=== PATIENT | female | born 2005 | race Caucasian/White ===

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

== ENCOUNTER 2025-01-01 01:25 | Emergency (ER) | payer BC, SELFPAY ==
[2025-01-01 01:39] VITALS: BP 132/85
--- NOTE | 2025-01-01 02:06 | ED.GENMED ---
History of Present Illness
<Yasmine Turk MD - Last Filed: 01/01/25 02:25>
General
Chief Complaint: Throat Problem
Source: patient and family
Time Seen by Provider: 01/01/25 01:56
History of Present Illness
History of Present Illness:
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 [facility] and had strep flu and COVID testing all of which were unremarkable. She came home today, and mom was concerned given her continued symptoms which prompted the visit here. She denies fever, abdominal pain, neck stiffness,
photophobia, cough. She has slight nasal congestion. She did have 1 episode of vomiting last night which she says is related to anxiety because she was crying at the time. Otherwise she denies nausea or vomiting. She denies back pain, or other
complaints.
Past History
<Yasmine Turk MD - Last Filed: 01/01/25 02:25>
Past History
ED Past Medical History: None
ED Past Surgical History: None
Social History
Tobacco: Non-smoker
Alcohol: Occasional
Drug: None
Personal: Single
Living: with family
Employment: Student
Phy Exam
<Yasmine Turk MD - Last Filed: 01/01/25 02:25>
Physical Exam
Physical Exam:
GENERAL: Alert , in no apparent distress, smiling, well-appearing, pleasant
EYE: pupils equal and reactive, no photophobia
NECK: Supple, mild posterior lymph adenopathy.
ENT: Mucous membranes slightly dry, no trismus, no drool, voice clear, no submental swelling, no posterior pharyngeal edema, uvula midline, mild pharyngeal erythema without exudate
CARDIAC: Regular rate and rhythm .
LUNGS: Clear breath sounds bilaterally, no acute respiratory distress, no wheezes/rales/rhonchi
ABDOMEN: Soft, without focal tenderness, no r/g, no cvat
NEUROLOGICAL: Alert and oriented, no focal neuro deficits
SKIN: Warm and dry, skin intact.
MUSCULOSKELETAL: No edema, well perfused.
PSYCH: Normal and appropriate interaction.
Sepsis
<David Velazquez DO - Last Filed: 01/02/25 22:45>
Sepsis Screening
Sepsis Assessment: Sepsis Ruled Out
Sepsis Screen
Sepsis Screen: Sepsis Ruled Out
Date: 01/02/25
Time: 22:45
Course
<Yasmine Turk MD - Last Filed: 01/01/25 02:25>
Orders/Labs/Results
Orders:
Orders
01/01/25 02:05
0.9% Sodium Chloride 1000 ml [Nss] 1,000 ml IV BOLUS
Dexamethasone Sod Phosphate [Decadron] 10 mg IV NOW STA
01/01/25 02:18
COVID-19 Antigen Urgent
Source: Nasal Swab
Monotest Urgent
Influenza A+B Rapid Molecular Urgent
NASIMA Source: Nasal Swab
Specimen Description:
Rapid Strep Group A Urgent
NASIMA Source: Throat/Pharynx
Specimen Description:
Date Specimen was Collected: 01/01/25
Time Specimen was Collected: 02:11
Abnormal Lab Results
01/01/25
02:18
Monoscreen Positive A
(Negative)
Vital Signs
Initial and Last Documented VS:
Initial Vital Signs
Temp Pulse Resp BP Pulse Ox
98.5 F 88 16 132/85 99
01/01/25 01:39 01/01/25 01:39 01/01/25 01:39 01/01/25 01:39 01/01/25 01:39
Last Documented Vital Signs
Temp Pulse Resp BP Pulse Ox
98.5 F 79 18 118/71 98
01/01/25 01:39 01/01/25 04:07 01/01/25 04:07 01/01/25 04:07 01/01/25 04:07
<David Velazquez DO - Last Filed: 01/02/25 22:45>
Orders/Labs/Results
Orders:
Orders
01/01/25 02:05
0.9% Sodium Chloride 1000 ml [Nss] 1,000 ml IV BOLUS
Dexamethasone Sod Phosphate [Decadron] 10 mg IV NOW STA
01/01/25 02:18
COVID-19 Antigen Urgent
Source: Nasal Swab
Monotest Urgent
Influenza A+B Rapid Molecular Urgent
NASIMA Source: Nasal Swab
Specimen Description:
Rapid Strep Group A Urgent
NASIMA Source: Throat/Pharynx
Specimen Description:
Date Specimen was Collected: 01/01/25
Time Specimen was Collected: 02:11
Abnormal Lab Results
01/01/25
02:18
Monoscreen Positive A
(Negative)
Vital Signs
Initial and Last Documented VS:
Initial Vital Signs
Temp Pulse Resp BP Pulse Ox
98.5 F 88 16 132/85 99
01/01/25 01:39 01/01/25 01:39 01/01/25 01:39 01/01/25 01:39 01/01/25 01:39
Last Documented Vital Signs
Temp Pulse Resp BP Pulse Ox
98.5 F 79 18 118/71 98
01/01/25 01:39 01/01/25 04:07 01/01/25 04:07 01/01/25 04:07 01/01/25 04:07
<Yasmine Turk MD - Last Filed: 01/01/25 02:25>
*Pulse Oximetry
SaO2: 99
Oxygen Mode of Delivery: Room air
<David Velazquez DO - Last Filed: 01/02/25 22:45>
*Pulse Oximetry
Patient hypoxic: no
*Critical Care Note
Total Time (30-74mins, 75-104mins- exclusive of procedures): Not Applicable
<Yasmine Turk MD - Last Filed: 01/01/25 02:25>
Update Note
Update Note:
Patient presents to the Emergency Department with sore throat
Number and Complexity of Problems Addressed at the Encounter
� Chronic conditions affecting care:
� Acute Exacerbation and/or Progression of Chronic Illness:
� Differential Diagnosis includes: But not limited to COVID, flu, strep, mono, etc. etc.
Amount and/or Complexity of Data to be Reviewed and Analyzed
� I performed an independent evaluation of and my interpretation is:
EKG:
CT:
Xrays:
Laboratory Studies:
Other:
� Review of other/old records reveals:
� Clinical information was obtained by an independent historian: Mom who is bedside
� Prescriptions/Medications Considered but not given:
� Further testing considered but not performed:
Risk of Complications and/or Morbidity or Mortality of Patient Management
� Social determinants of health affecting care:
� Discussion with other providers (PCP, Hospitalists, Consultants, etc):
� Escalation of care including admission/observation vs risk of discharge considered: Patient with stable airway, no signs or symptoms to suggest meningitis/encephalitis/RPA, Margie's, etc. Lab testing pending, IV fluids
steroids initiated, likely plan for discharge with close follow-up and continued hydration
ED Attending Note
<Yasmine Turk MD - Last Filed: 01/01/25 02:25>
-
Portions of this chart may have been created with voice recognition software.� Occasional wrong word or��sound alike� substitutions may have occurred due to the inherent limitations of voice recognition software.
<David Velazquez, DO - Last Filed: 01/02/25 22:45>
ED Attending Note
Patient seen and examined by attending physician: Yes
ED Attending Note:
Patient seen in signout. 19-year-old female with acute sore throat. Was seen at [facility] had flu COVID and strep test which were negative. They are repeated today including a mono test. [place] positive. Patient seen in conjunction with
[facility]. Patient to be discharged home with acute mononucleosis.
Discharge Plan
Departure
Patient Disposition: Home (Routine Discharge)
Date of Disposition: 01/01/25
Time of Disposition: 03:49
Patient with high blood pressure during this ER visit?: Yes
Discharge Problem:
Acute sore throat, Mononucleosis
Instructions: Sore Throat, Adult (DC), Mononucleosis (DC), BLOOD PRESSURE
Referrals:
UNKNOWN - PT DOES,NOT KNOW [Family Provider]
Activity Restrictions/Additional Instructions:
IF YOU DEVELOP INCREASING/NEW PAIN, TROUBLE BREATHING, INABILITY TO SWALLOW LIQUIDS/SOFT FOOD, SUSTAINED FEVER, VOMITING, CHEST PAIN, NECK PAIN, OR OTHER WORRISOME SIGNS, GO TO THE ER IMMEDIATELY!
Interventions
Interventions:
*Risk Screen - Suicide Last Done: 01/01/25 01:39
*General Assessment Last Done: 01/01/25 02:22
*Neglect/Abuse Screening Last Done: 01/01/25 02:22
*ED- Fall Risk Assessment Last Done: 01/01/25 02:21
*ED COVID-19 Vaccine History Last Done: 01/01/25 02:21
*ED Influenza Vaccine History Last Done: 01/01/25 02:21
*Nursing Disposition Last Done: 01/01/25 04:09
ED-EENT Assessment Last Done: 01/01/25 02:14
ED- Pulmonary Assessment Last Done: 01/01/25 02:14
Discharge Date and Time
Discharge Date/Time: 01/01/25 04:09
Print Language: HEBREW
[2025-01-01 02:27] VITALS: BMI 27.5
[2025-01-01] MEDS: DECADRON 10 MG IV (02:29)
[2025-01-01] MEDS: NSS 1000 IV (02:30)
[2025-01-01 02:57] LABS: COVID-19 Antigen Negative (Negative)
[2025-01-01 04:07] VITALS: BP 118/71
== END 2025-01-01 04:09 | disposition home or self-care (01) ==
LOC: EMR 01:25
PROVIDERS: EMERGENCY PHYSICIAN Emergency Medicine
DX: R07.0 Pain in throat (principal); B27.90 Infectious mononucleosis, unspecified without complication; F41.9 Anxiety disorder, unspecified
CPT/HCPCS: 99283; 96374; 96361; 86308; 87070; 87502; 87811; 87880